=== PATIENT | female | born 1990 ===

== ENCOUNTER 2018-07-01 23:03 | Emergency (ER) | payer OTHER ==
[2018-07-02] MEDS ORDERED: HYDROcodone/ACETAMIN 5-325 MG* 1 TAB PO ONE (00:02)
[2018-07-02] MEDS ORDERED: Sulfamethox/Trimethoprim DS 800/160* TAB PO ONE (01:58)
[2018-07-02 02:00] VITALS: BP 129/83
[2018-07-02] MEDS ORDERED: DOXYcycline CAP(*) 100 MG PO ONE (02:01)
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
[2018-07-02] MEDS ORDERED: Ibuprofen TAB* 400 MG PO ONE (02:05)
== END 2018-07-02 02:15 | disposition home or self-care (01) ==
LOC: ED 23:03
DX: S01.81XA Laceration without foreign body of other part of head, initial encounter (principal); R51 Headache; Z88.0 Allergy status to penicillin; Z88.2 Allergy status to sulfonamides; L08.9 Local infection of the skin and subcutaneous tissue, unspecified; V49.9XXA Car occupant (driver) (passenger) injured in unspecified traffic accident, initial encounter; Y92.9 Unspecified place or not applicable
CPT/HCPCS: 12004; 70450; 70486; 99283; A9270-GY